=== PATIENT | female | born 1950 | race Caucasian/White ===

== ENCOUNTER 2020-03-03 14:33 | Observation (INO) | payer MEDICARE, OTHER, SELFPAY ==
[2020-03-03] VITALS (10 sets, daily range): BP systolic 146–168; BP diastolic 59–100; PULSE 66–92; RESP 14–19; TEMP 36.4–36.8; O2SAT 97–100; BMI 34.9
--- NOTE | 2020-03-03 16:00 | ECG_ITS ---
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 Measurements Intervals [place] Rate: 99 P: 45 SD: 174 QRS: 6 QRSD: 81 T: 27 QT: 340 QTc: 436 Interpretive Statements SINUS RHYTHM No previous ECG available for comparison Electronically Signed On 03-03-2020 21:07:39 CDT by Eneida Ballard M.D. [id number]
--- NOTE | 2020-03-03 16:00 | XRR_ITS ---
PROCEDURE INFORMATION: Exam: XR Chest, 1 View Exam date and time: 03/03/2020 4:16 PM Age: 69 years old Clinical indication: Dyspnea; Prior surgery; Surgery type: Bypass TECHNIQUE: Imaging protocol: XR of the chest Views: 1 view. COMPARISON: No relevant prior studies available. FINDINGS: Lungs: There is a small calcified granuloma in the right upper lobe. Lungs are otherwise clear. No consolidation. Pleural space: Unremarkable. No pleural effusion. No pneumothorax. Heart/Mediastinum: Unremarkable. No cardiomegaly. Vasculature: Atherosclerotic changes are present in the aortic arch. Bones/joints: Sternotomy wires and mediastinal surgical clips are present, consistent with previous coronary arterial bypass grafting. XR/XR chest 1V portable [id number] IMPRESSION: No acute findings.
--- NOTE | 2020-03-03 16:01 | W.ED.GENADLT ---
Documented by User: Alejandra Murray MD 03/17/20 06:21 HPI - General Adult General: Chief complaint: General Medical Stated complaint: high bp Time Seen by Provider: 03/03/20 15:51 History of Present Illness: HPI narrative: This patient is a 69-year-old female who presents today with high blood pressure, headache, shortness of breath. She said she has been having a lot of difficulty controlling her blood pressure over the last month or 2. Her doctor has made multiple changes to her medications. Today her blood pressure was over 200 and she went to the doctor's office where they gave her clonidine and sent her to the ER. She said she has been having some pressure in her head with the high blood pressure but today's headache is different and worse. She also has had increasing shortness of breath. She says the symptoms feel just like the symptoms that brought her to the hospital for evaluation and eventually to cardiac bypass surgery. That was about 7 years ago. Since that time she has not had a stress test. She thinks she had an ultrasound of her heart a few years ago. She sees a oleo hasher and renderer to [facility] but has not had any big work-up in quite some time. She did recently have a carotid ultrasound on the left which showed a 60% blockage. She has had surgery on her right carotid artery previously. Onset (ago): month(s) (Progressive symptoms over the past month) Location: head Severity: similar to prior episodes (Leading to her cardiac bypass surgery) Associated symptoms: Reports dyspnea and headache(s); Deny chest pain, malaise, nausea, rash or vomiting Review of Systems General: Reports: 10 or more systems reviewed and unremarkable except in HPI and below Const: Denies: fever(s), chills, fatigue or malaise Eyes: Denies: change in vision ENMT: Denies: odynophagia Card: Denies: chest pain or swelling of feet/ankles Resp: Reports: dyspnea; Denies: productive cough or non-productive cough GI: Denies: abdominal pain, nausea or vomiting : Denies: flank pain or difficulty voiding Musc: Denies: neck pain or back pain Skin/Breast: Denies: rash Neuro: Reports: headache(s); Denies: numbness in extremities or weakness in extremities Grupo/Lymph: Denies: easy bruising or easy bleeding PFSH ED PFSH: Medical History (Updated 03/03/20 @ 23:04 by Lakshmi Spivey) Carotid artery disease Cataracts, bilateral Coronary artery disease DJD (degenerative joint disease) Essential hypertension History of colon polyps History of ovarian cancer Hyperlipidemia Hypertension Obstructive sleep apnea Ovarian cancer in remission Diagnosed and treated 2009 Stress incontinence Surgical History (Updated 03/03/20 @ 22:34 by Cesar Clark MD) History of breast lump removal History of carotid endarterectomy Right side History of coronary artery bypass graft 4 vessels, [place], 2013 [place] History of knee replacement Left History of total abdominal hysterectomy Family History (Updated 03/03/20 @ 22:34 by Cesar Clark MD) Other CAD (coronary artery disease) Social History (Updated 03/03/20 @ 22:35 by Cesar Clark MD) Smoking and tobacco status: former smoker Alcohol intake: never Physical Exam Const: COMMON NORMALS: no acute distress, patient oriented x3, no limitations and alert GENERAL APPEARANCE: cooperative and comfortable HENMT: HEAD & SCALP: normal to inspection FACE & SINUS: normal facial exam Eye: GENERAL EYE: appearance normal, both eyes and all related structures Neck/C-Spine: COMMON NORMALS: supple, no meningeal signs, no JVD and No carotid bruits (Healed carotid endarterectomy scar on the right) Chest: COMMONS NORMALS: normal inspection of the chest (Healed midline sternotomy scar) Resp: COMMON NORMALS: normal respiratory effort, No use of accessory muscles and clear to auscultation bilaterally AUSCULTATION: clear to auscultation bilaterally Cardio: COMMON NORMALS: no JVD, regular rate, regular rhythm and No murmurs present (Cardio) RATE: regular rate RHYTHM: regular rhythm GI: COMMON NORMALS: Normal to inspection, nondistended, normoactive bowel sounds present, Soft to palpation and non-tender INSPECTION: Yes normal to inspection AUSCULTATION: Yes normoactive bowel sounds PALPATION: Yes Soft to palpation Back/Pelvis: COMMON NORMALS: thoracic and lumbar spine normal to inspection Extremity: COMMON NORMALS: normal to inspection Neuro: COMMON NORMALS: patient oriented x3, moves all extremities, no focal motor deficits and no sensory deficits noted SENSORIUM/ORIENTATION: Yes alert MENINGEAL SIGNS: Yes no meningeal signs Psych: COMMON NORMALS: mental status grossly normal, cooperative and normal affect Skin: COMMON NORMALS: no rashes or lesions noted and turgor normal GENERAL SKIN EXAM: no rashes or lesions noted and turgor normal Course Vital Signs: Vital signs: Vital Signs Temperature 98.0 F 03/04/20 08:00 Pulse Rate 78 03/04/20 17:30 Respiratory Rate 20 H 03/04/20 17:30 Blood Pressure 133/58 03/04/20 17:30 Pulse Oximetry 93 03/04/20 17:30 [facility] - General Adult Lab Data: Labs: Lab Results 03/03/20 03/03/20 03/03/20 Range/Units 16:26 16:26 16:26 WBC 8.7 (4.0-10.0) 10^3/ uL RBC 4.94 (4.1-5.3) 10^6/u L Hgb 14.9 (11.5-15.3) g/dL Hct 46.7 (37.0-47.0) % MCV 94.5 (81-99) fL MCH 30.2 (28.0-34.0) pg MCHC 31.9 (30.0-36.0) g/dL RDW 12.2 (12.1-15.1) % Plt Count 225 (130-400) 10^3/c mm MPV 11.1 H (7.4-10.4) fL Neut % (Auto) 60.4 % Lymph % (Auto) 29.8 % [place] % (Auto) 6.7 % Eos % (Auto) 1.5 % Baso % (Auto) 0.7 % Neut # (Auto) 5.25 (1.8-7.7) 10^3/u L Lymph # (Auto) 2.6 (0.8-4.8) 10^3/u L [place] # (Auto) 0.6 (0.2-0.9) 10^3/u L Eos # (Auto) 0.1 (0.0-0.8) 10^3/u L Baso # (Auto) 0.1 (0.0-0.1) 10^3/u L Nucleated RBC % (a uto) 0 % Nucleated RBCs # 0.0 /100WBC Sodium 138 (136-145) mmol/L Potassium 4.4 (3.5-5.1) mmol/L Chloride 104 (98-107) mmol/L Carbon Dioxide 23 (22-29) mmol/L Anion Gap 15.4 (5-19) BUN 15 (8-23) mg/dL Creatinine 0.8 (0.5-0.9) mg/dL GFR Calculation 71.1 L (90-130) mL/min Glucose 102 (65-115) mg/dL Calculated Osmolal ity 282 L (285-295) mOsm/k g Calcium 10.0 (8.5-10.5) mg/dL Total Bilirubin 0.4 (0.15-1.2) mg/dL AST 37 H (0-32) U/L ALT 58 H (0-33) U/L Alkaline Phosphata se 130 H (35-105) IU/L Troponin T Baselin e 10 (0-10) ng/L Troponin T 120 Min tangirnaq (0-10) ng/L Delta Troponin T (0-10) ABS# NT-Pro-B Natriuret Pep 47 (0-125) pg/mL Total Protein 7.2 (6.6-8.7) g/dL Albumin 5.1 (3.5-5.2) g/dL Globulin 2.1 (1.3-4.6) g/dL Urine Color (Yellow) Urine Appearance (CLEAR) Urine pH (5-7) Ur Specific Gravit y (1.005-1.030) Urine Protein (Negative) Urine Glucose (UA) (Normal) Urine Ketones (Negative) Urine Blood (Negative) Urine Nitrate (Negative) Urine Bilirubin (NEGATIVE) Urine Urobilinogen (Negative) mg/dL Ur Leukocyte Connie ase (Negative) Hepatitis A IgM Ab (Nonreactive) Hep Bs Antigen (Nonreactive) Hep B Core IgM Ab (Nonreactive) Hepatitis C Antibo dy (Nonreactive) 03/03/20 03/03/20 03/03/20 Range/Units 16:26 17:29 18:30 WBC (4.0-10.0) 10^3/ uL RBC (4.1-5.3) 10^6/u L Hgb (11.5-15.3) g/dL Hct (37.0-47.0) % MCV (81-99) fL MCH (28.0-34.0) pg MCHC (30.0-36.0) g/dL RDW (12.1-15.1) % Plt Count (130-400) 10^3/c mm MPV (7.4-10.4) fL Neut % (Auto) % Lymph % (Auto) % [place] % (Auto) % Eos % (Auto) % Baso % (Auto) % Neut # (Auto) (1.8-7.7) 10^3/u L Lymph # (Auto) (0.8-4.8) 10^3/u L [place] # (Auto) (0.2-0.9) 10^3/u L Eos # (Auto) (0.0-0.8) 10^3/u L Baso # (Auto) (0.0-0.1) 10^3/u L Nucleated RBC % (a uto) % Nucleated RBCs # /100WBC Sodium (136-145) mmol/L Potassium (3.5-5.1) mmol/L Chloride (98-107) mmol/L Carbon Dioxide (22-29) mmol/L Anion Gap (5-19) BUN (8-23) mg/dL Creatinine (0.5-0.9) mg/dL GFR Calculation (90-130) mL/min Glucose (65-115) mg/dL Calculated Osmolal ity (285-295) mOsm/k g Calcium (8.5-10.5) mg/dL Total Bilirubin (0.15-1.2) mg/dL AST (0-32) U/L ALT (0-33) U/L Alkaline Phosphata se (35-105) IU/L Troponin T Baselin e (0-10) ng/L Troponin T 120 Min tangirnaq 12.55 H (0-10) ng/L Delta Troponin T 2.55 (0-10) ABS# NT-Pro-B Natriuret Pep (0-125) pg/mL Total Protein (6.6-8.7) g/dL Albumin (3.5-5.2) g/dL Globulin (1.3-4.6) g/dL Urine Color Yellow (Yellow) Urine Appearance Clear (CLEAR) Urine pH 5 (5-7) Ur Specific Gravit y 1.010 (1.005-1.030) Urine Protein Neg (Negative) Urine Glucose (UA) Norm (Normal) Urine Ketones Negative (Negative) Urine Blood Neg (Negative) Urine Nitrate Negative (Negative) Urine Bilirubin Neg (NEGATIVE) Urine Urobilinogen Neg (Negative) mg/dL Ur Leukocyte Connie ase Negative (Negative) Hepatitis A IgM Ab Non-reactive (Nonreactive) Hep Bs Antigen Non-reactive (Nonreactive) Hep B Core IgM Ab Non-reactive (Nonreactive) Hepatitis C Antibo dy Non-reactive (Nonreactive) EKG Data^: EKG 1: Computer generated interpretation: Chest X-Ray 03/03/20 16:00 IMPRESSION: No acute findings. Head CT 03/03/20 17:48 IMPRESSION: No acute intracranial finding Radiation Dose CTDIVOL = (mGy): DLP = 765.13 (mGy-cm) Gallbladder Ultrasound 03/04/20 07:00 IMPRESSION: 1. Mild hepatomegaly with moderate hepatic steatosis. 2. No cholelithiasis identified. Abdomen/Pelvis CT 03/04/20 09:54 IMPRESSION: 1. No adrenal mass. 2. Mild hepatomegaly with severe hepatic steatosis. 3. Moderate atherosclerosis aorta extends into the common iliac arteries. 4. Possible small gallstone in the gallbladder. Not visualized on the recent ultrasound. 5. Chronic mild LEFT hydroureteronephrosis. There is very mild dilatation of the renal pelvis and ureter throughout its course. No resultant renal atrophy. No change since 2008. Suspect a mild LEFT distal ureteral stricture. Discharge Plan Discharge Patient Disposition: Placed in Observation Admit Provider: Cesar Clark Clinical Impression: Dyspnea on exertion, Anginal equivalent Condition: Stable Discharge Diet: Cardiac Discharge Activity: Resume usual activity Patient Instructions: Amlodipine (By mouth), Chronic Hypertension (DC) Additional Instructions: Please maintain blood pressure diary by checking her blood pressures at least 3 times a day. Please follow-up with her blood pressure diary with your primary care provider and your oleo hasher and renderer in [place]. Given your past medical history of longstanding hypertension since the age of 18 years and with this episodes of flushing you should be checked out for secondary causes of hypertension. Please follow-up with your primary care provider regarding the blood work which has been sent while you are in the hospital. 5 HIAA and blood work for pheochromocytoma should be done. Discharge Date/Time: 03/03/20 22:40 Sign Out Sign Out Data: Patient Sign Out occurred on 08/06/20 at 18:07. Patient's care was discussed, and care was transferred from to Lakshmi Spivey. Coding Level of Care Code ED Clinical Provider Trainer for Chg Fwd Exam Comprehensive Documented by User: Lakshmi Spivey 03/03/20 23:04 HPI - General Adult General: Chief complaint: General Medical Stated complaint: high bp Time Seen by Provider: 03/03/20 15:51 PFSH ED PFSH: Medical History (Updated 03/03/20 @ 23:04 by Lakshmi Spivey) Carotid artery disease Cataracts, bilateral Coronary artery disease DJD (degenerative joint disease) Essential hypertension History of colon polyps History of ovarian cancer Hyperlipidemia Hypertension Obstructive sleep apnea Ovarian cancer in remission Diagnosed and treated 2008 Stress incontinence Surgical History (Updated 03/03/20 @ 22:34 by Cesar Clark MD) History of breast lump removal History of carotid endarterectomy Right side History of coronary artery bypass graft 4 vessels, [place], 2013 [place] History of knee replacement Left History of total abdominal hysterectomy Family History (Updated 03/03/20 @ 22:34 by Cesar Clark MD) Other CAD (coronary artery disease) Social History (Updated 03/03/20 @ 22:35 by Cesar Clark MD) Smoking and tobacco status: former smoker Alcohol intake: never Course Vital Signs: Vital signs: Vital Signs Temperature 98.0 F 03/04/20 08:00 Pulse Rate 78 03/04/20 17:30 Respiratory Rate 20 H 03/04/20 17:30 Blood Pressure 133/58 03/04/20 17:30 Pulse Oximetry 93 03/04/20 17:30 MDM - General Adult MDM Narrative: Medical decision making narrative: The case was inherited by me at change of shift from Dr. Murray. Please see her note for her history, physical exam and medical decision-making notes. Patient still complains of headache and is very concerned about her shortness of breath and fatigue. She states all these symptoms were the same symptoms she had before she ended up having to have bypass surgery. She is fearful to go home without more answers. I have tried to reassure her in regards to her lab work, EKGs and CT scan. Nonetheless she seems very frustrated. I have asked Dr. Clark to come down and evaluate the patient and he has been gracious enough to consult to see if further care is needed. Lab Data: Labs: Lab Results 03/03/20 03/03/20 03/03/20 Range/Units 16:26 16:26 16:26 WBC 8.7 (4.0-10.0) 10^3/ uL RBC 4.94 (4.1-5.3) 10^6/u L Hgb 14.9 (11.5-15.3) g/dL Hct 46.7 (37.0-47.0) % MCV 94.5 (81-99) fL MCH 30.2 (28.0-34.0) pg MCHC 31.9 (30.0-36.0) g/dL RDW 12.2 (12.1-15.1) % Plt Count 225 (130-400) 10^3/c mm MPV 11.1 H (7.4-10.4) fL Neut % (Auto) 60.4 % Lymph % (Auto) 29.8 % [place] % (Auto) 6.7 % Eos % (Auto) 1.5 % Baso % (Auto) 0.7 % Neut # (Auto) 5.25 (1.8-7.7) 10^3/u L Lymph # (Auto) 2.6 (0.8-4.8) 10^3/u L [place] # (Auto) 0.6 (0.2-0.9) 10^3/u L Eos # (Auto) 0.1 (0.0-0.8) 10^3/u L Baso # (Auto) 0.1 (0.0-0.1) 10^3/u L Nucleated RBC % (a uto) 0 % Nucleated RBCs # 0.0 /100WBC Sodium 138 (136-145) mmol/L Potassium 4.4 (3.5-5.1) mmol/L Chloride 104 (98-107) mmol/L Carbon Dioxide 23 (22-29) mmol/L Anion Gap 15.4 (5-19) BUN 15 (8-23) mg/dL Creatinine 0.8 (0.5-0.9) mg/dL GFR Calculation 71.1 L (90-130) mL/min Glucose 102 (65-115) mg/dL Calculated Osmolal ity 282 L (285-295) mOsm/k g Calcium 10.0 (8.5-10.5) mg/dL Total Bilirubin 0.4 (0.15-1.2) mg/dL AST 37 H (0-32) U/L ALT 58 H (0-33) U/L Alkaline Phosphata se 130 H (35-105) IU/L Troponin T Baselin e 10 (0-10) ng/L Troponin T 120 Min tangirnaq (0-10) ng/L Delta Troponin T (0-10) ABS# NT-Pro-B Natriuret Pep 47 (0-125) pg/mL Total Protein 7.2 (6.6-8.7) g/dL Albumin 5.1 (3.5-5.2) g/dL Globulin 2.1 (1.3-4.6) g/dL Urine Color (Yellow) Urine Appearance (CLEAR) Urine pH (5-7) Ur Specific Gravit y (1.005-1.030) Urine Protein (Negative) Urine Glucose (UA) (Normal) Urine Ketones (Negative) Urine Blood (Negative) Urine Nitrate (Negative) Urine Bilirubin (NEGATIVE) Urine Urobilinogen (Negative) mg/dL Ur Leukocyte Connie ase (Negative) Hepatitis A IgM Ab (Nonreactive) Hep Bs Antigen (Nonreactive) Hep B Core IgM Ab (Nonreactive) Hepatitis C Antibo dy (Nonreactive) 03/03/20 03/03/20 03/03/20 Range/Units 16:26 17:29 18:30 WBC (4.0-10.0) 10^3/ uL RBC (4.1-5.3) 10^6/u L Hgb (11.5-15.3) g/dL Hct (37.0-47.0) % MCV (81-99) fL MCH (28.0-34.0) pg MCHC (30.0-36.0) g/dL RDW (12.1-15.1) % Plt Count (130-400) 10^3/c mm MPV (7.4-10.4) fL Neut % (Auto) % Lymph % (Auto) % [place] % (Auto) % Eos % (Auto) % Baso % (Auto) % Neut # (Auto) (1.8-7.7) 10^3/u L Lymph # (Auto) (0.8-4.8) 10^3/u L [place] # (Auto) (0.2-0.9) 10^3/u L Eos # (Auto) (0.0-0.8) 10^3/u L Baso # (Auto) (0.0-0.1) 10^3/u L Nucleated RBC % (a uto) % Nucleated RBCs # /100WBC Sodium (136-145) mmol/L Potassium (3.5-5.1) mmol/L Chloride (98-107) mmol/L Carbon Dioxide (22-29) mmol/L Anion Gap (5-19) BUN (8-23) mg/dL Creatinine (0.5-0.9) mg/dL GFR Calculation (90-130) mL/min Glucose (65-115) mg/dL Calculated Osmolal ity (285-295) mOsm/k g Calcium (8.5-10.5) mg/dL Total Bilirubin (0.15-1.2) mg/dL AST (0-32) U/L ALT (0-33) U/L Alkaline Phosphata se (35-105) IU/L Troponin T Baselin e (0-10) ng/L Troponin T 120 Min tangirnaq 12.55 H (0-10) ng/L Delta Troponin T 2.55 (0-10) ABS# NT-Pro-B Natriuret Pep (0-125) pg/mL Total Protein (6.6-8.7) g/dL Albumin (3.5-5.2) g/dL Globulin (1.3-4.6) g/dL Urine Color Yellow (Yellow) Urine Appearance Clear (CLEAR) Urine pH 5 (5-7) Ur Specific Gravit y 1.010 (1.005-1.030) Urine Protein Neg (Negative) Urine Glucose (UA) Norm (Normal) Urine Ketones Negative (Negative) Urine Blood Neg (Negative) Urine Nitrate Negative (Negative) Urine Bilirubin Neg (NEGATIVE) Urine Urobilinogen Neg (Negative) mg/dL Ur Leukocyte Connie ase Negative (Negative) Hepatitis A IgM Ab Non-reactive (Nonreactive) Hep Bs Antigen Non-reactive (Nonreactive) Hep B Core IgM Ab Non-reactive (Nonreactive) Hepatitis C Antibo dy Non-reactive (Nonreactive) Imaging Data^: CXR: Attestation: I personally reviewed and interpreted this imaging study as follows: My impression: No acute cardiopulmonary findings. CT Head: Radiologist's impression: [address] [address] [address] Scan Report Signed Patient: Viry Mendez Unit #: [id number] : 1950 Age/Sex: 69 / F ADM Date: 03/03/20 Loc: ER Room/Bed: Attending Dr: Ordering Provider/Ordering MD: Alejandra Murray MD Date of Service: 03/03/20 Procedure(s): CT head wo con* [id number] Accession Number(s): [id number] Report Number: [id number] PROCEDURE INFORMATION: Exam: CT Head Without Contrast Exam date and time: 03/03/2020 6:03 PM Age: 69 years old Clinical indication: Pain; Headache TECHNIQUE: Imaging protocol: Computed tomography of the head without contrast. Radiation optimization: All CT scans at this facility use at least one of these dose optimization techniques: automated exposure control; mA and/or kV adjustment per patient size (includes targeted exams where dose is matched to clinical indication); or iterative reconstruction. COMPARISON: No relevant prior studies available. RADIATION DOSE METRICS: Total DLP (mGy-cm): 765.13 FINDINGS: Brain: There is mild cortical atrophy. Low-density changes in the white matter are consistent with nonspecific small vessel chronic ischemic change. There is no intracranial mass, hemorrhage or edema. Ventricles: Normal. No ventriculomegaly. Bones/joints: Unremarkable. No acute fracture. Sinuses: Visualized sinuses are unremarkable. No fluid levels. Mastoid air cells: Visualized mastoid air cells are well aerated. Soft tissues: Unremarkable. CT/CT head wo con* [id number] IMPRESSION: No acute intracranial finding Radiation Dose CTDIVOL = (mGy): DLP = 765.13 (mGy-cm) Dictated By: Koko Todd Signed By: Koko Todd Signed Date/Time: 03/03/201855 DD/ 54 EKG Data^: EKG 1: Attestation: I personally reviewed and interpreted this EKG as follows: EKG interpretation date: 03/03/20 EKG interpretation time: 14:59 Interpretation: Normal sinus rhythm at 99 beats a minute, normal axis, no blocks, normal intervals, no acute ST-T wave changes. Computer generated interpretation: Chest X-Ray 03/03/20 16:00 IMPRESSION: No acute findings. Head CT 03/03/20 17:48 IMPRESSION: No acute intracranial finding Radiation Dose CTDIVOL = (mGy): DLP = 765.13 (mGy-cm) Gallbladder Ultrasound 03/04/20 07:00 IMPRESSION: 1. Mild hepatomegaly with moderate hepatic steatosis. 2. No cholelithiasis identified. Abdomen/Pelvis CT 03/04/20 09:54 IMPRESSION: 1. No adrenal mass. 2. Mild hepatomegaly with severe hepatic steatosis. 3. Moderate atherosclerosis aorta extends into the common iliac arteries. 4. Possible small gallstone in the gallbladder. Not visualized on the recent ultrasound. 5. Chronic mild LEFT hydroureteronephrosis. There is very mild dilatation of the renal pelvis and ureter throughout its course. No resultant renal atrophy. No change since 2008. Suspect a mild LEFT distal ureteral stricture. Discharge Plan Discharge Patient Disposition: Placed in Observation Admit Provider: Cesar Clark Clinical Impression: Dyspnea on exertion, Anginal equivalent Condition: Stable Discharge Diet: Cardiac Discharge Activity: Resume usual activity Patient Instructions: Amlodipine (By mouth), Chronic Hypertension (DC) Additional Instructions: Please maintain blood pressure diary by checking her blood pressures at least 3 times a day. Please follow-up with her blood pressure diary with your primary care provider and your oleo hasher and renderer in [place]. Given your past medical history of longstanding hypertension since the age of 18 years and with this episodes of flushing you should be checked out for secondary causes of hypertension. Please follow-up with your primary care provider regarding the blood work which has been sent while you are in the hospital. 5 HIAA and blood work for pheochromocytoma should be done. Discharge Date/Time: 03/03/20 22:40 Sign Out Sign Out Data: Patient Sign Out occurred on 03/03/20 at 18:07. Patient's care was discussed, and care was transferred from to Lakshmi Spivey. Coding Level of Care Code ED Clinical Provider Trainer for Chg Fwd Exam Comprehensive
[2020-03-03 16:44] LABS: Basophils # 0.1 10^3/uL (0.0-0.1); Basophils % 0.7 %; Eosinophils # 0.1 10^3/uL (0.0-0.8); Eosinophils % 1.5 %; Hematocrit 46.7 % (37.0-47.0); Hemoglobin 14.9 g/dL (11.5-15.3); Lymphocytes # 2.6 10^3/uL (0.8-4.8); Lymphocytes % 29.8 %; Mean Corpuscular HGB Conc 31.9 g/dL (30.0-36.0); Mean Corpuscular Hemoglobin 30.2 pg (28.0-34.0); Mean Corpuscular Volume 94.5 fL (81-99); Mean Platelet Volume 11.1 fL (7.4-10.4); Monocytes # 0.6 10^3/uL (0.2-0.9); Monocytes % 6.7 %; Neutrophils # 5.25 10^3/uL (1.8-7.7); Neutrophils % 60.4 %; Nucleated Red Blood Cells % 0 %; Platelet Count 225 10^3/cmm (130-400); Red Blood Count 4.94 10^6/uL (4.1-5.3); Red Cell Distribution Width 12.2 % (12.1-15.1); White Blood Count 8.7 10^3/uL (4.0-10.0)
[2020-03-03 17:09] LABS: Troponin(5th) Baseline 10 ng/L (0-10)
[2020-03-03 17:18] LABS: Anion Gap 15.4 (5-19); Blood Urea Nitrogen 15 mg/dL (8-23); Carbon Dioxide 23 mmol/L (22-29); Chloride 104 mmol/L (98-107); Glomerular Filtration Rate 71.1 mL/min (90-130); Glucose 102 mg/dL (65-115); Osmolality Calculated 282 mOsm/kg (285-295); Potassium 4.4 mmol/L (3.5-5.1); Sodium 138 mmol/L (136-145)
[2020-03-03 17:19] LABS: Alanine Aminotransferase 58 U/L (0-33); Albumin Level 5.1 g/dL (3.5-5.2); Alkaline Phosphatase 130 IU/L (35-105); Aspartate Amino Transferase 37 U/L (0-32); Globulin 2.1 g/dL (1.3-4.6); NT Pro B Type Natriuretic Pept 47 pg/mL (0-125); Total Bilirubin 0.4 mg/dL (0.15-1.2); Total Protein 7.2 g/dL (6.6-8.7)
--- NOTE | 2020-03-03 17:23 | PC.NURSE ---
Pt up to BR to try to void
--- NOTE | 2020-03-03 17:48 | CTR_ITS ---
PROCEDURE INFORMATION: Exam: CT Head Without Contrast Exam date and time: 03/03/2020 6:03 PM Age: 69 years old Clinical indication: Pain; Headache TECHNIQUE: Imaging protocol: Computed tomography of the head without contrast. Radiation optimization: All CT scans at this facility use at least one of these dose optimization techniques: automated exposure control; mA and/or kV adjustment per patient size (includes targeted exams where dose is matched to clinical indication); or iterative reconstruction. COMPARISON: No relevant prior studies available. RADIATION DOSE METRICS: Total DLP (mGy-cm): 765.13 FINDINGS: Brain: There is mild cortical atrophy. Low-density changes in the white matter are consistent with nonspecific small vessel chronic ischemic change. There is no intracranial mass, hemorrhage or edema. Ventricles: Normal. No ventriculomegaly. Bones/joints: Unremarkable. No acute fracture. Sinuses: Visualized sinuses are unremarkable. No fluid levels. Mastoid air cells: Visualized mastoid air cells are well aerated. Soft tissues: Unremarkable. CT/CT head wo con* [id number] IMPRESSION: No acute intracranial finding Radiation Dose CTDIVOL = (mGy): DLP = 765.13 (mGy-cm)
[2020-03-03 17:58] LABS: Add Urine Microscopic? NO
--- NOTE | 2020-03-03 18:00 | ECG_ITS ---
[facility] Test Date: 2020-03-03 Pat Name: Viry Mendez Department: Room: Gender: Female Client Development Consultant: : 1950 Requested By: Alejandra Schmidt Order Number: [id number] Pérez MD: Eneida Ballard M.D. Measurements Intervals [place] Rate: 69 P: 38 KS: 211 QRS: 3 QRSD: 84 T: 10 QT: 380 QTc: 408 Interpretive Statements SINUS RHYTHM WITH FIRST DEGREE AV BLOCK INTERPRETATION BASED ON A DEFAULT AGE OF 40 YEARS Compared to ECG 03/03/2020 14:59:36 First degree AV block now present Electronically Signed On 03-03-2020 21:17:20 CDT by Eneida Ballard M.D. [id number] f
[2020-03-03 18:08] LABS: Bilirubin Urine Neg (NEGATIVE); Blood Urine Neg (Negative); Glucose Urine UA Norm (Normal); Ketones Urine Negative (Negative); Leukocyte Esterase Urine Negative (Negative); Nitrate Urine Negative (Negative); Protein Urine Neg (Negative); Urine Appearance Clear (CLEAR); Urine Color Yellow (Yellow); Urobilinogen Urine Neg (Negative); pH Urine 5 (5-7)
[2020-03-03 20:23] LABS: Troponin 5 2HR 12.55 ng/L (0-10); Troponin 5 2HR Delta 2.55 ABS# (0-10)
[2020-03-03] MEDS: labetalol 5 mg/mL SDV 20mL 10 MG IVP (20:41)
[2020-03-03] MEDS: acetaminophen 500 mg Tablet 1000 MG PO (20:49)
--- NOTE | 2020-03-03 22:00 | ECG_ITS ---
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 Measurements Intervals [place] Rate: 62 P: 36 VT: 218 QRS: -1 QRSD: 96 T: 11 QT: 422 QTc: 432 Interpretive Statements SINUS RHYTHM WITH FIRST DEGREE AV BLOCK Compared to ECG 03/03/2020 18:31:49 No significant changes Electronically Signed On 03-04-2020 18:03:12 CDT by Benjamin Flower M.D. [id number] f
--- NOTE | 2020-03-03 22:28 | PM.HP ---
Providers/Chief Complaint Chief Complaint: high bp History of Present Illness Viry Mendez is a 69 year old female who presents to the hospital with some complaints of dyspnea. She states for the last 1 months she intermittently has been having flushing, headache when her blood pressure goes up. For the last 2 weeks she has been having some dyspnea that can occur at rest or with exertion. However, this can reliably occur with exertion. It requires 2 to 3 minutes to recover by resting. She denies any chest discomfort. She reports this dyspnea on exertion occurred before when she was having angina secondary to her heart disease which required bypass. She believes this is getting worse and she is having more prolonged episodes. No nausea. No fever. No COVID exposure. No recent leg edema. No calf pain. Review of Systems General: Reports: 10 or more systems reviewed and unremarkable except in HPI and below Const: Denies: fever(s) or chills Eyes: Denies: change in vision ENMT: Denies: throat pain Card: Reports: dyspnea on exertion; Denies: chest pain Resp: Denies: dyspnea GI: Denies: abdominal pain : Denies: flank pain Musc: Denies: neck pain Neuro: Denies: headache(s) Psych: Denies: anxiety Endo: Denies: polyuria Grupo/Lymph: Denies: easy bruising All/Imm: Denies: urticaria Medications/Allergies Home Medications Medication Instructions Recorded Confirmed Last Taken Type oxybutynin chloride 10 mg 10 mg PO DAILY 01/18/20 03/03/20 03/03/20 History tablet,extended release 24 hr metoprolol tartrate 50 mg tablet See Rx Instructions .ROUTE 01/26/20 03/03/20 03/03/20 Rx .COMPLEX #180 tab amlodipine 5 mg tablet 5 mg PO DAILY #30 tab 03/01/20 03/03/20 03/03/20 Rx amoxicillin 875 mg-potassium 1 tab PO BID 10 Days #20 tab 03/01/20 03/03/20 03/03/20 Rx clavulanate 125 mg tablet telmisartan 40 mg tablet 40 mg PO BID #180 tab 03/01/20 03/03/20 03/03/20 Rx aspirin [Aspirin Low Dose] 81 mg PO DAILY 03/03/20 03/03/20 03/03/20 History isosorbide mononitrate 60 mg PO DAILY 03/03/20 03/03/20 03/03/20 History lovastatin 40 mg PO DAILY 03/03/20 03/03/20 03/03/20 History Allergies Allergy/AdvReac Type Severity Reaction Status Date / Time sulfamethoxazole Allergy Unknown Verified 03/03/20 16:11 [From Bactrim] trimethoprim [From Bactrim] Allergy Unknown Verified 03/03/20 16:11 PFSH Acute PFSH: Medical History (Updated 03/03/20 @ 22:40 by Cesar Clark MD) Carotid artery disease Cataracts, bilateral Coronary artery disease DJD (degenerative joint disease) Essential hypertension History of colon polyps History of ovarian cancer Hyperlipidemia Hypertension Obstructive sleep apnea Ovarian cancer in remission Diagnosed and treated 2008 Stress incontinence Surgical History (Updated 03/03/20 @ 22:34 by Cesar Clark MD) History of breast lump removal History of carotid endarterectomy Right side History of coronary artery bypass graft 4 vessels, [place], 2013 [place] History of knee replacement Left History of total abdominal hysterectomy Family History (Updated 03/03/20 @ 22:34 by Cesar Clark MD) Other CAD (coronary artery disease) Social History (Updated 03/03/20 @ 22:35 by Cesar Clark MD) Smoking and tobacco status: former smoker Alcohol intake: never Substance/Drug Use: never Vitals/I&O/Wt Last Vital Signs Temp 98.2 F 03/03/20 14:46 Pulse 66 03/03/20 22:07 Resp 18 03/03/20 22:07 BP 152/62 03/03/20 22:07 Pulse Ox 97 03/03/20 22:07 Weight last 48 hrs Weight 95.254 kg Physical Exam Narrative: EXAM NARRATIVE: General exam no apparent distress. No chest discomfort or shortness of breath currently. HEENT: Pupils equally round. Oropharynx clear. Neck is supple no lymphadenopathy or thyromegaly Cardiovascular regular rate and rhythm, no S3 or S4 Lungs clear no wheezing or crackles Abdomen is soft with positive bowel sounds. No obvious organomegaly was deferred Extremities no cyanosis clubbing or edema, cap refill brisk Skin no rash Neuro no focal deficits. Data : 03/03/20 16:26 03/03/20 16:26 Other data: Liver function tests and alk phos slightly elevated Initial troponin X, repeat at 120 minutes 12.5 BNP 47 TSH pending Urinalysis negative CT head no bleed Chest x-ray no infiltrate EKG demonstrates sinus rhythm, normal axis, first-degree AV block, no's concerning ischemic changes. A&P Assessment and plan (1) Dyspnea: From her description this is her anginal equivalent. Secondary to this I believe it is imperative to stratify her risk with echocardiogram, nuclear stress testing through observation stay. Await third troponin. If this becomes significantly positive could consider move to angiogram For now continue home medicines which appear appropriate. She is on aspirin, long-acting nitrates, beta-jeff, statin Telemetry Status: Acute (2) Transaminitis: Etiology unknown at this point. Will repeat tomorrow. Check hepatitis panel Check gallbladder ultrasound Status: Acute (3) Hypertension: Blood pressure has been elevated and variable at present. For now continue home blood pressure medication. May need adjustment in her regimen should blood pressure be significantly elevated here. Could consider to increase amlodipine. Hydralazine PRN Status: Acute Additional A&P Information Hyperlipidemia. Continue statin. Consider change to high potency statin on discharge. Check lipid profile in a.m. Check TSH. Obstructive sleep apnea. 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
[2020-03-03] MEDS: enoxaparin 40 mg/0.4 mL Syringe SUBCUT (22:49)
[2020-03-03 22:57] LABS: Troponin 5 6HR 9.32 ng/L (0-10)
[2020-03-03 23:01] LABS: Troponin 5 6HR Delta -0.68 ng/L (0-12)
[2020-03-03 23:07] LABS: Thyroid Stimulating Hormone 2.84 uIU/mL (0.27-4.20)
[2020-03-03 23:17] LABS: Hepatitis A Antibody IgM Non-Reactive (Nonreactive); Hepatitis B Core IgM Non-Reactive (Nonreactive); Hepatitis B Surface Antigen Non-Reactive (Nonreactive); Hepatitis C Virus Antibody Non-Reactive (Nonreactive)
--- NOTE | 2020-03-03 23:29 | PC.NURSE ---
PT ARRIVED TO ROOM [facility]. PT AMBULATED TO BED FROM [facility]. PT IS IN A SINUS RHYTHM. HR 88, BP 149/68, RR 16, SPO2 93%. PT WAS BROUGHT A SANDWICH AND EDUCATED ON BEING NPO AFTER MIDNIGHT. PT STATES THAT THE LAST TIME DRINKING CAFFEINE WAS THIS MORNING AROUND 0700 AND WAS A CUP OF COFFEE. PT WAS ORIENTATED TO ROOM. PT DENIES PAIN AT THIS TIME. WILL CONTINUE TO MONITOR.
[2020-03-04] VITALS (8 sets, daily range): BP systolic 133–163; BP diastolic 47–77; PULSE 68–99; RESP 16–24; TEMP 36.6–36.7; O2SAT 93–98
[2020-03-04 04:17] LABS: Basophils # 0.1 10^3/uL (0.0-0.1); Basophils % 0.9 %; Eosinophils # 0.1 10^3/uL (0.0-0.8); Eosinophils % 1.2 %; Hematocrit 40.5 % (37.0-47.0); Hemoglobin 12.9 g/dL (11.5-15.3); Lymphocytes # 2.9 10^3/uL (0.8-4.8); Lymphocytes % 31.3 %; Mean Corpuscular HGB Conc 31.9 g/dL (30.0-36.0); Mean Corpuscular Hemoglobin 29.8 pg (28.0-34.0); Mean Corpuscular Volume 93.5 fL (81-99); Mean Platelet Volume 11.3 fL (7.4-10.4); Monocytes # 0.7 10^3/uL (0.2-0.9); Monocytes % 7.8 %; Neutrophils # 5.38 10^3/uL (1.8-7.7); Neutrophils % 58.4 %; Nucleated Red Blood Cells % 0 %; Platelet Count 218 10^3/cmm (130-400); Red Blood Count 4.33 10^6/uL (4.1-5.3); Red Cell Distribution Width 12.1 % (12.1-15.1); White Blood Count 9.2 10^3/uL (4.0-10.0)
[2020-03-04 04:36] LABS: Chol HDL Ratio 4.33 mg/dL (0.0-4.40); Cholesterol 156 mg/dL (0-200); HDL Cholesterol 36 mg/dL (60-100); LDL Cholesterol Calculated 74 mg/dL (50-129); LDL HDL Ratio 2.06 RATIO (0.00-3.22); Triglycerides 228 mg/dL (0-150)
[2020-03-04 04:44] LABS: Alanine Aminotransferase 48 U/L (0-33); Albumin Level 4.2 g/dL (3.5-5.2); Alkaline Phosphatase 104 IU/L (35-105); Aspartate Amino Transferase 23 U/L (0-32); Blood Urea Nitrogen 16 mg/dL (8-23); Calcium 9.5 mg/dL (8.5-10.5); Carbon Dioxide 24 mmol/L (22-29); Chloride 106 mmol/L (98-107); Globulin 2.8 g/dL (1.3-4.6); Glucose 103 mg/dL (65-115); Osmolality Calculated 289 mOsm/kg (285-295); Sodium 141 mmol/L (136-145); Total Bilirubin 0.5 mg/dL (0.15-1.2)
--- NOTE | 2020-03-04 05:28 | PC.NURSE ---
PT APPEARED TO HAVE RESTED WITH EYES CLOSED. PT DENIES PAIN AT THIS TIME. WILL GIVE REPORT TO ON COMING NURSE.
--- NOTE | 2020-03-04 06:00 | ECG_ITS ---
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 Interpretive Statements NAME OF STUDY: LEXISCAN SESTAMIBI STRESS TEST INDICATION: Chest Pain PROCEDURE: At the baseline, the blood pressure was 154/79 mmHg with a heart rate of 78 bpm. The electrocardiogram showed sinus rhythm with first-degree AV block, normal axis. Possible chest lead reversal (V1 and V2). The Lexiscan was infused over a period of 20 seconds. A total of 0.4 milligrams of Lexiscan was infused. The stress phase was continued for a total of 5 minutes. Heart rate at the end of the stress phase was 93 bpm with a blood pressure of 120/45 mmHg. The EKG at the peak infusion revealed sinus rhythm with nonspecific T wave inversion in lead III. This study was terminated due to protocol completion. Sestamibi was injected 20 seconds after the Lexiscan infusion. Blood pressure at the end of the recovery phase was 135/50 mmHg with a heart rate of 88 beats per minute. CONCLUSION: 1. No significant EKG changes with the LexiScan infusion. 2. No LexiScan induced chest pain or cardiac arrhythmia. 3. Baseline hypertension with normal blood pressure and heart rate response. 4. Sestamibi/sestamibi perfusion scan pending; see separate report. Electronically Signed On 03-05-2020 13:04:54 CDT by Joann Macedo M.D. [email or web address].[email or web address]/store/[id number]
--- NOTE | 2020-03-04 07:00 | USCV_ITS ---
Viry Mendez Age: 69 Gender: F : 1950 Exam Date: 03/04/2020 06:50 Ordering Phys: Cesar Clark MD Technologist: Tory Jurado [place] [facility] [place]: ANGINA BP: 134 / 66 HR: 67 Rhythm: Sinus Technical Quality: Suboptimal MEASUREMENTS (Male / Female) Normal Values 2D ECHO LV Diastolic Diameter PLAX 3.0 cm 4.2 - 5.9 / 3.9 - 5.3 cm LV Systolic Diameter PLAX 1.7 cm LV Chamber Size 2.4 cm IVS Diastolic Thickness 0.9 cm 0.6 - 1.0 / 0.6 - 0.9 cm IVS Systolic Thickness 1.4 cm LVPW Diastolic Thickness 1.6 cm 0.6 - 1.0 / 0.6 - 0.9 cm LVPW Systolic Thickness 1.9 cm RV Chamber Size 2.9 cm LVOT Diameter 2.1 cm LV Ejection Fraction 2D Teich 77.1 % LV Ejection Fraction MOD 2C 65.7 % LV Ejection Fraction 2C AL 64.7 % LA Diameter 4.4 cm LA Width 2.8 cm LA Height 3.9 cm RA Width 2.5 cm RA Height 3.4 cm Aorta at Sinotubular Diameter 2.7 cm M-MODE LV Diastolic Diameter MM 3.3 cm 4.2 - 5.9 / 3.9 - 5.3 cm LV Systolic Diameter MM 1.8 cm LV Ejection Fraction MM Teich 79.4 % IVS Diastolic Thickness MM 0.8 cm 0.6 - 1.0 / 0.6 - 0.9 cm IVS Systolic Thickness MM 1.2 cm LVPW Diastolic Thickness MM 0.6 cm 0.6 - 1.0 / 0.6 - 0.9 cm LVPW Systolic Thickness MM 1.1 cm Aortic Annulus Diameter 2.7 cm LA Ao Ratio MM 1.6 MV E Point Septal Separation 0.3 cm DOPPLER AV Peak Velocity 97.0 cm/s LVOT Peak Velocity 96.0 cm/s AV Area Cont Eq vti 4.5 cm squared AV Area Cont Eq pk 3.4 cm squared MV Area PHT 3.7 cm squared Mitral E to A Ratio 0.8 MV E' Velocity 66.0 cm/s Mitral E to MV E' Ratio 7.2 Mitral E to LV E' Lateral Ratio 6.7 Mitral E to LV E' Septal Ratio 8.0 TR Peak Velocity 129.0 cm/s TR Peak Gradient 6.6 mmHg TV Peak E Velocity 77.0 cm/s Right Atrial Pressure 3.0 mmHg Pulmonary Artery Systolic Pressu 9.7 mmHg PV Peak Velocity 75.0 cm/s RV Acceleration Time 0.2 s RV Ejection Time 0.3 s RV AcT/ET 0.5 FINDINGS Left Ventricle Normal left ventricular cavity size. Normal left ventricular systolic function. Left ventricular ejection fraction is estimated at 60%. No regional wall motion abnormalities. Normal diastolic function. Right Ventricle Normal right ventricular size and systolic function. Tricuspid valve regurgitant jet is inadequate for estimation of right ventricular systolic function. Right Atrium Right atrium not well visualized. Left Atrium Left atrium not well visualized. Mitral Valve Mildly thickened mitral valve. No mitral valve stenosis. No significant mitral valve regurgitation. Aortic Valve Aortic valve not well visualized. No aortic valve stenosis. Tricuspid Valve Tricuspid valve not well visualized. Pulmonic Valve Pulmonic valve not well visualized. Pericardium No pericardial effusion. Aorta Normal size aortic root and proximal ascending aorta. CONCLUSIONS 1. Normal left ventricular cavity size and systolic function. Left ventricular ejection fraction is estimated at 60%. No regional wall motion abnormalities. Normal diastolic function. 2. Normal right ventricular size and systolic function. 3. No significant valvular abnormality based on this study. 4. No prior similar studies to compare. Joann Macedo MD (Electronically Signed) Final Date: 04 March 2020 21:12 S
--- NOTE | 2020-03-04 07:00 | US_ITS ---
WS: [id number] RIGHT UPPER QUADRANT ULTRASOUND HISTORY: elevated LFT's COMPARISON: None available. Liver: 18.0 cm in length. Liver is slightly enlarged with diffuse hepatic steatosis. No biliary dilat ation or mass identified. Gallbladder: Normally distended gallbladder with no stones or wall thickening. CBD: 0.4 cm Pancreas: Normal size and echogenicity. Right kidney: 10.9 cm in length. Normal echogenicity with no mass or hydronephrosis. Aorta and IVC: Unremarkable. No ascites. US/US gall bladder [id number] IMPRESSION: 1. Mild hepatomegaly with moderate hepatic steatosis. 2. No cholelithiasis identified.
[2020-03-04] MEDS: regadenoson 0.4 Mg/5 ml Syringe IVP (07:50)
[2020-03-04] MEDS: amlodipine 5 mg Tablet PO (09:22)
[2020-03-04] MEDS: isosorbide mononitrate ER 30 mg Tablet 60 MG PO (09:22)
[2020-03-04] MEDS: atorvastatin 40 mg Tablet 20 MG PO (09:22)
[2020-03-04] MEDS: losartan 50 mg Tablet 100 MG PO (09:24)
[2020-03-04] MEDS: oxybutynin 5 mg Tablet 10 MG PO (09:24)
[2020-03-04] MEDS: aspirin 81 mg EC Tablet PO (09:25)
[2020-03-04] MEDS: metoprolol tartrate 50 mg Tablet PO (09:25)
[2020-03-04] MEDS: acetaminophen 325 mg Tablet 650 MG PO (09:29)
--- NOTE | 2020-03-04 09:38 | PC.NURSE ---
Family brought in belongings at bedside. (pink bag)
--- NOTE | 2020-03-04 09:54 | CT_ITS ---
WS: [id number] CT ABDOMEN AND PELVIS WITH AND WITHOUT CONTRAST HISTORY: r/o adrenal mass, elevated LFT TECHNIQUE: Unenhanced 5 mm axial imaging first performed through the abdomen. Post contrast imaging t hrough the abdomen and pelvis. Adrenal protocol followed. Oral contrast has not been provided. Sagitt al and coronal reformats are submitted. All CT scans at [facility] use at least one of th jonathan dose optimization techniques: automated exposure control; mA and/or kV adjustment per patient siz e (includes targeted exams where dose is matched to clinical indication); or iterative reconstruction . CONTRAST: Omnipaque 300; 95 mL IV. DLP: 3281.68 mGy.cm COMPARISON: 03/23/2009 Lung bases are clear. Normal size heart. No hiatal hernia. Severe diffuse hepatic steatosis and mild hepatomegaly. Focal area of decreased attenuation in the LE FT lobe of the liver is probably a small cyst or hepatic steatosis. No solid mass. Normal portal vein . Possible single stone near the neck of the gallbladder. Pancreas and spleen are negative. Normal ad renal glands. No mass. Kidneys are enhancing normally with a 1.8 cm cyst in the lower pole the LEFT k idney which is stable since 2008. No solid mass. There is mild LEFT hydroureteronephrosis. The LEFT u reter is dilated throughout its course to the bladder. Similar to the prior study. Normal size RIGHT ovary. Atherosclerosis of aorta. Very mild ectasia and dilatation of the infrarenal aorta to 2.9 cm. Moderat e atherosclerosis continues into the common iliac arteries. No GI tract obstruction. The appendix is normal. No significant diverticular disease. Well-distended urinary bladder. No intraluminal filling defects. No osteoblastic or osteolytic bone disease. CT/CT abdomen pelvis wo/w [id number] IMPRESSION: 1. No adrenal mass. 2. Mild hepatomegaly with severe hepatic steatosis. 3. Moderate atherosclerosis aorta extends into the common iliac arteries. 4. Possible small gallstone in the gallbladder. Not visualized on the recent u ltrasound. 5. Chronic mild LEFT hydroureteronephrosis. There is very mild dilatation of t he renal pelvis and ureter throughout its course. No resultant renal atrophy. N o change since 2008. Suspect a mild LEFT distal ureteral stricture.
--- NOTE | 2020-03-04 09:57 | USCV_ITS ---
Andrea Viyr Age: 69 Gender: F : 1950 Exam Date: 03/04/2020 15:43 Ordering Phys: Pramod Horner MD Technologist: Tuan Shipley [place]am [place] [facility] [place] Indication: HTN ? RENAL STENOSIS Aortic Velocity @ SMA (cm/s) 100 RIGHT KIDNEY LEFT KIDNEY Velocity (cm/s) Velocity (cm/s) Sys/Esparza Sys/Esparza Resistive Index Resistive Index 71.2 / 13.8 0.81 Proximal Renal Artery 107.5 / 25.1 0.77 73.9 / 20.2 0.73 Mid Renal Artery 64.7 / 14.6 0.78 70.7 / 19.7 0.72 Distal Renal Artery 59.8 / 17.8 0.70 52.1 / 13.8 0.73 Hilar 35.7 / 8.7 0.76 61.7 / 14.9 0.76 Upper Pole 34.7 / 11.6 0.67 61.1 / 15.9 0.74 Mid Pole 46.3 / 10.6 0.77 50.5 / 12.2 0.76 Lower Pole 35.7 / 7.2 0.80 0.70 Renal Aortic Ratio 1.07 Accleration Index (cm/sec2) 1711.0 Hilar 1136.0 0 0 1306.0 Upper Pole 636.00 0 704.00 Mid Pole 475.00 603.00 Lower Pole 891.00 120.9 Kidney Length (mm) 117.4 CONCLUSIONS No sonographic evidence of hemodynamically significant renal artery stenosis bilaterally. Normal color flow Doppler, peak systolic velocities and Renal/Aortic peak systolic velocity ratio noted in bilateral main renal arteries. Luis Latham MD (Electronically Signed) Final Date: 07 March 2020 12:52 S
--- NOTE | 2020-03-04 10:49 | PC.NURSE ---
Verbal order to give 5mg of amlodipine if patient already received 5mg dose this morning.
[2020-03-04] MEDS: amlodipine 5 mg Tablet 10 MG PO (10:55)
--- NOTE | 2020-03-04 11:00 | PC.NURSE ---
Patient to CT scan. Transported in wheelchair.
[2020-03-04] MEDS: iohexol 300 mg/mL 100 mL Btl IV (11:33)
--- NOTE | 2020-03-04 12:37 | PC.NURSE ---
Patient refused lunch and stated she only wants water.
--- NOTE | 2020-03-04 16:59 | PM.DCS ---
Discharge Providers Date of Admission: 03/03/20 21:35 Date of Discharge: March 04, 2020 Attending Provider at Admission: Cesar Clark MD Attending Provider at Discharge: Pramod Horner MD Diagnoses at Discharge Discharge Diagnosis (1) Dyspnea: Status: Acute (2) Transaminitis: Status: Acute (3) Hypertension: Status: Acute Reason for Visit Reason for Visit: high bp Hospital Course Discharge Summary: Viry Mendez is a 69 year old female who presents to the hospital with some complaints of dyspnea. She states for the last 1 months she intermittently has been having flushing, headache when her blood pressure goes up. For the last 2 weeks she has been having some dyspnea that can occur at rest or with exertion. However, this can reliably occur with exertion. It requires 2 to 3 minutes to recover by resting. She denies any chest discomfort. She reports this dyspnea on exertion occurred before when she was having angina secondary to her heart disease which required bypass. She believes this is getting worse and she is having more prolonged episodes. No nausea. No fever. No COVID exposure. No recent leg edema. No calf pain. Patient was admitted to the hospital for chest pain rule out and she underwent stress test on March 04 which was negative for any acute ischemia. Given her history and longstanding hypertension since the age of 18 years and occasional flushing with diaphoresis Hypertension at home patient should be checked out for pheochromocytoma. Blood work with aldosterone levels has been sent out. CT abdomen pelvis was done to rule out adrenal mass or renal artery stenosis. Renal duplex was done but the results are awaited. Patient also underwent echocardiogram but the results are awaited. Patient is advised to maintain a blood pressure diary and follow-up with her primary care provider and plate conditioner for further adjustment of antihypertensives. Patient should be checked for pheochromocytoma with 5-HIAA as an outpatient with 24-hour urine studies. Patient will discharge hemodynamically stable condition. Physical Exam Narrative: EXAM NARRATIVE: General exam no apparent distress. No chest discomfort or shortness of breath currently. HEENT: Pupils equally round. Oropharynx clear. Neck is supple no lymphadenopathy or thyromegaly Cardiovascular regular rate and rhythm, no S3 or S4 Lungs clear no wheezing or crackles Abdomen is soft with positive bowel sounds. No obvious organomegaly was deferred Extremities no cyanosis clubbing or edema, cap refill brisk Skin no rash Neuro no focal deficits. Discharge Data Data Completed and Pending: Completed Studies During Hospitalization Category Date Time Status CT abdomen pelvis wo/w [id number] Routin e Cat Scan 03/04/20 09:[address] head wo con* [id number] Stat Cat Scan 03/03/20 17:48 Completed Sestamibi Stress Test Request Routi ne Exams 03/04/20 06:00 Draft XR chest 1V marisela ble [id number] Stat Exams 03/03/20 16:00 Completed NM zakiya perf SPECT r/s* [id number] Routin e Nuc Med 03/04/20 22:05 Completed US gall bladder 7 [id number] Routine Ultrasound 03/04/20 07:00 Completed Pending at discharge Category Date Time Status Sestamibi Stress Test Request Routi ne Exams 03/03/20 22:05 Stop Req Aldosterone Routi ne Lab 03/04/20 12:13 Received CV echo complete* [id number] Routine Ultrasound 03/04/20 07:00 Taken CV renal doppler [id number] Routine Ultrasound 03/04/20 09:57 Taken Labs from last 24 hours 03/04/20 03/04/20 03/04/20 12:13 03:34 03:34 WBC 9.2 RBC 4.33 Hgb 12.9 Hct 40.5 MCV 93.5 MCH 29.8 MCHC 31.9 RDW 12.1 Plt Count 218 MPV 11.3 H Neut % (Auto) 58.4 Lymph % (Auto) 31.3 [place] % (Auto) 7.8 Eos % (Auto) 1.2 Baso % (Auto) 0.9 Neut # (Auto) 5.38 Lymph # (Auto) 2.9 [place] # (Auto) 0.7 Eos # (Auto) 0.1 Baso # (Auto) 0.1 Nucleated RBC % (a uto) 0 Nucleated RBCs # 0.0 Sodium Potassium Chloride Carbon Dioxide Anion Gap BUN Creatinine GFR Calculation Glucose Calculated Osmolal ity Calcium Total Bilirubin AST ALT Alkaline Phosphata se Troponin T Baselin e Troponin T 120 Min [place] Delta Troponin T Troponin T Hi Sens 6Hr Troponin T Hi Sens 6Hr Delta NT-Pro-B Natriuret Pep Total Protein Albumin Globulin Triglycerides 228 H Cholesterol 156 LDL Cholesterol, C alc 74 HDL Cholesterol 36 L LDL/HDL Ratio 2.06 Cholesterol/HDL Ra keiko 4.33 Aldosterone Pending TSH Urine Color Urine Appearance Urine pH Ur Specific Gravit y Urine Protein Urine Glucose (UA) Urine Ketones Urine Blood Urine Nitrate Urine Bilirubin Urine Urobilinogen Ur Leukocyte Connie ase Hepatitis A IgM Ab Hep Bs Antigen Hep B Core IgM Ab Hepatitis C Antibo dy 03/04/20 03/03/20 03/03/20 03:34 22:26 22:26 WBC RBC Hgb Hct MCV MCH MCHC RDW Plt Count MPV Neut % (Auto) Lymph % (Auto) [place] % (Auto) Eos % (Auto) Baso % (Auto) Neut # (Auto) Lymph # (Auto) [place] # (Auto) Eos # (Auto) Baso # (Auto) Nucleated RBC % (a uto) Nucleated RBCs # Sodium 141 Potassium 4.0 Chloride 106 Carbon Dioxide 24 Anion Gap 15.0 BUN 16 Creatinine 0.7 GFR Calculation 83.0 L Glucose 103 Calculated Osmolal ity 289 Calcium 9.5 Total Bilirubin 0.5 AST 23 ALT 48 H Alkaline Phosphata se 104 Troponin T Baselin e Troponin T 120 Min [place] Delta Troponin T Troponin T Hi Sens 6Hr 9.32 Troponin T Hi Sens 6Hr Delta -0.68 L NT-Pro-B Natriuret Pep Total Protein 7.0 Albumin 4.2 Globulin 2.8 Triglycerides Cholesterol LDL Cholesterol, C alc HDL Cholesterol LDL/HDL Ratio Cholesterol/HDL Ra keiko Aldosterone TSH 2.84 Urine Color Urine Appearance Urine pH Ur Specific Gravit y Urine Protein Urine Glucose (UA) Urine Ketones Urine Blood Urine Nitrate Urine Bilirubin Urine Urobilinogen Ur Leukocyte Connie ase Hepatitis A IgM Ab Hep Bs Antigen Hep B Core IgM Ab Hepatitis C Antibo dy 03/03/20 03/03/20 03/03/20 18:30 17:29 16:26 WBC RBC Hgb Hct MCV MCH MCHC RDW Plt Count MPV Neut % (Auto) Lymph % (Auto) [place] % (Auto) Eos % (Auto) Baso % (Auto) Neut # (Auto) Lymph # (Auto) [place] # (Auto) Eos # (Auto) Baso # (Auto) Nucleated RBC % (a uto) Nucleated RBCs # Sodium Potassium Chloride Carbon Dioxide Anion Gap BUN Creatinine GFR Calculation Glucose Calculated Osmolal ity Calcium Total Bilirubin AST ALT Alkaline Phosphata se Troponin T Baselin e Troponin T 120 Min [place] 12.55 H Delta Troponin T 2.55 Troponin T Hi Sens 6Hr Troponin T Hi Sens 6Hr Delta NT-Pro-B Natriuret Pep Total Protein Albumin Globulin Triglycerides Cholesterol LDL Cholesterol, C alc HDL Cholesterol LDL/HDL Ratio Cholesterol/HDL Ra keiko Aldosterone TSH Urine Color Yellow Urine Appearance Clear Urine pH 5 Ur Specific Gravit y 1.010 Urine Protein Neg Urine Glucose (UA) Norm Urine Ketones Negative Urine Blood Neg Urine Nitrate Negative Urine Bilirubin Neg Urine Urobilinogen Neg Ur Leukocyte Connie ase Negative Hepatitis A IgM Ab Non-reactive Hep Bs Antigen Non-reactive Hep B Core IgM Ab Non-reactive Hepatitis C Antibo dy Non-reactive 03/03/20 03/03/20 16:26 16:26 WBC RBC Hgb Hct MCV MCH MCHC RDW Plt Count MPV Neut % (Auto) Lymph % (Auto) [place] % (Auto) Eos % (Auto) Baso % (Auto) Neut # (Auto) Lymph # (Auto) [place] # (Auto) Eos # (Auto) Baso # (Auto) Nucleated RBC % (a uto) Nucleated RBCs # Sodium 138 Potassium 4.4 Chloride 104 Carbon Dioxide 23 Anion Gap 15.4 BUN 15 Creatinine 0.8 GFR Calculation 71.1 L Glucose 102 Calculated Osmolal ity 282 L Calcium 10.0 Total Bilirubin 0.4 AST 37 H ALT 58 H Alkaline Phosphata se 130 H Troponin T Baselin e 10 Troponin T 120 [address] [place] Delta Troponin T Troponin T Hi Sens 6Hr Troponin T Hi Sens 6Hr Delta NT-Pro-B Natriuret Pep 47 Total Protein 7.2 Albumin 5.1 Globulin 2.1 Triglycerides Cholesterol LDL Cholesterol, C alc HDL Cholesterol LDL/HDL Ratio Cholesterol/HDL Ra keiko Aldosterone TSH Urine Color Urine Appearance Urine pH Ur Specific Gravit y Urine Protein Urine Glucose (UA) Urine Ketones Urine Blood Urine Nitrate Urine Bilirubin Urine Urobilinogen Ur Leukocyte Connie ase Hepatitis A IgM Ab Hep Bs Antigen Hep B Core IgM Ab Hepatitis C Antibo dy Vitals: Last Vital Signs Temp 98.0 F 03/04/20 08:00 Pulse 78 03/04/20 16:30 Resp 20 H 03/04/20 16:30 BP 133/58 03/04/20 16:30 Pulse Ox 93 03/04/20 16:30 Discharge Plan Discharge Patient Disposition: Home Condition: Stable Prescriptions: Continued oxybutynin chloride 10 mg tablet extended release 24hr 10 mg PO DAILY RF: 0 telmisartan 40 mg tablet 40 mg PO BID Qty: 180 RF: 0 metoprolol tartrate 50 mg tablet See Rx Instructions .ROUTE .COMPLEX Qty: 180 RF: 0 Aspirin Low Dose 81 mg Tablet,Delayed Release (Dr/Ec) 81 mg PO DAILY RF: 0 isosorbide mononitrate 30 mg tablet extended release 24 hr 60 mg PO DAILY RF: 0 lovastatin 40 mg tablet 40 mg PO DAILY RF: 0 Changed amlodipine 5 mg tablet 10 mg PO DAILY Qty: 60 RF: 0 Discontinued amoxicillin-pot clavulanate [Augmentin] 875-125 mg tablet 1 tab PO BID 10 Days Qty: 20 RF: 0 Discharge Orders: Discharge Order (Routine); Ordered 03/04/20 Ordered By: Pramod Horner Discharge Diet: Cardiac Discharge Activity: Resume usual activity Activity Restrictions/Additional Instructions: Please maintain blood pressure diary by checking her blood pressures at least 3 times a day. Please follow-up with her blood pressure diary with your primary care provider and your plate conditioner in [place]. Given your past medical history of longstanding hypertension since the age of 18 years and with this episodes of flushing you should be checked out for secondary causes of hypertension. Please follow-up with your primary care provider regarding the blood work which has been sent while you are in the hospital. 5 HIAA and blood work for pheochromocytoma should be done. Discharge Attestations Time Spent in Discharge Care*: greater than 30 min Specific Discharge Activities: Specific discharge activities: educating patient, discussing with patient case coordinator/social workers/dc planners, documenting/other paperwork and evaluating patient/reviewing data Status at Discharge: Cognitive status at discharge: cognitively intact, Behavioral status at discharge: cooperative, Functional status at discharge: independent ambulation Overall status at discharge: patient is back to baseline Quality Metrics Clinical Quality Measures During this hospital stay, did patient experience: None Coding Level of Care Code 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
--- NOTE | 2020-03-04 17:45 | PC.NURSE ---
Patient requests to speak with Dr. Horner regarding discharge before leaving the hospital. I contacted physician by phone and transferred the call into the patient's for the physician to speak with her.
--- NOTE | 2020-03-04 22:05 | NMCV_ITS ---
NM zakiya perf SPECT r/s* [id number] Viry Mendez Age: 69 Gender: F : 1950 Exam Date: 03/04/2020 07:04 Ordering Phys: Cesar Clark MD Technologist: ALEXANDRA Joseph Exam Location: [facility] Indications: HTN STRESS TEST Please see separate stress test report in [facility] for full findings IMAGE PROTOCOL Rest/Stress 1 Lexiscan Day Radiopharmaceutical Dose (mCi) Administration Site Administered by Rest: Tc-99m 11.0 IV Radha Dilcia, HEAD REFRIGERATION ENGINEER Sestamibi Stress:Tc-99m 33.0 IV Radha Dilcia, HEAD REFRIGERATION ENGINEER Sestamibi Rest: 04-Mar-2020 60 Discovery 630 Stress: 04-Mar-2020 45 Discovery 630 0.4mg Lexiscan. Images obtained in supine and prone position. SPECT RESULTS Technical Quality: Good Raw Data Analysis: Breast attenuation Image Corrections: No attenuation or motion correction applied Summed Stress Score: 2 Summed Rest Score: 0 Summed Difference Score: 2 PERFUSION FINDINGS SPECT images demonstrate homogeneous tracer distribution throughout the myocardium. FUNCTIONAL RESULTS (calculated via Gated SPECT) Stress Image LV EF (%): 70 Stress EDV (mL):61 TID: 1.23 Stress ESV (mL):18 FUNCTIONAL FINDINGS: There is normal left ventricular systolic function. IMPRESSIONS 1. Normal myocardial perfusion imaging. 2. LV function is normal. 3. LVEF is 70%. 4. EKG portion of the study will be interpreted separately. Benjamin Flower MD (Electronically Signed) Final Date: 04 March 2020 09:07 S
== END 2020-03-04 18:25 | disposition home or self-care (01) ==
LOC: ER 18:07 → CSU 21:56
PROVIDERS: Emergency Medicine; Admitting Provider Internal Medicine; Visit Provider Student in an Organized Health Care Education/Training Program
DX: I25.118 Atherosclerotic heart disease of native coronary artery with other forms of angina pectoris (principal); R06.00 Dyspnea, unspecified; R74.0 Nonspecific elevation of levels of transaminase and lactic acid dehydrogenase [LDH]; I10 Essential (primary) hypertension; R94.5 Abnormal results of liver function studies; E78.5 Hyperlipidemia, unspecified; G47.33 Obstructive sleep apnea (adult) (pediatric); Z79.82 Long term (current) use of aspirin; M19.90 Unspecified osteoarthritis, unspecified site; Z85.43 Personal history of malignant neoplasm of ovary
CPT/HCPCS: 12345; 36415; 70450; 71045; 74178; 76705; 78452; 80053; 80061; 80074; 81003; 82088; 83880; 84443; 84484; 85025; 93005; 93010; 93017; 93306; 93975; 94660; 96372; 96374; 96375; 99284; 99285; A9500; G0378; J1650; J2785; J3490; Q9967

== ENCOUNTER → 2020-04-08 09:07 | Outpatient (BNVA) | payer MEDICARE, OTHER, SELFPAY | PROVIDERS: Visit Provider Registered Nurse | DX: R39.9 Unspecified symptoms and signs involving the genitourinary system (principal) | CPT/HCPCS: 81000 ==

== ENCOUNTER 2020-05-27 10:47 | Outpatient (CLI) | payer MEDICARE, OTHER, SELFPAY ==
--- NOTE | 2020-05-27 11:00 | MM_ITS ---
WS: [id number] DIAGNOSTIC BILATERAL DIGITAL MAMMOGRAM WITH CAD HISTORY: breast lump COMPARISON: 06/04/2019, 05/20/2019, 07/03/2019 TECHNIQUE: Bilateral craniocaudad, mediolateral oblique, and mediolateral views are submitted. Comput er aided detection utilized. Breast composition: There are scattered areas of fibroglandular density. Biopsy clip in the anterior LEFT breast at the site of the prior biopsy. The previously described nodule is no longer present. Be nign-appearing calcifications in each breast. No suspicious mass or calcification. MM/[place] [id number] IMPRESSION: BI-RADS: 2-Benign FOLLOW UP: 1 Year Follow-up
== END 2020-05-27 10:48 | disposition home or self-care (01) ==
PROVIDERS: PCP Registered Nurse; Visit Provider Registered Nurse
DX: N63.20 Unspecified lump in the left breast, unspecified quadrant
CPT/HCPCS: 77066

== ENCOUNTER 2021-05-30 10:16 | Outpatient (CLI) | payer MEDICARE, OTHER, SELFPAY ==
--- NOTE | 2021-05-30 11:00 | MR_ITS ---
WS: [id number] MRI LUMBAR SPINE NONCONTRAST TECHNIQUE: Sagittal T1, T2 and STIR imaging. Axial T1 and T2 imaging. 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 FINDINGS: Counting performed from the craniocervical junction. L5 is partially sacralized. Mild lumbar curve. N o acute compression. No high-grade central canal stenosis. A few Schmorl's nodes in the lower thoraci c and lumbar spine. L1-L2: Mild annular bulging. Spinal canal and foramen are patent. Mild facet arthropathy. L2-L3: Mild annular bulging with a small right foraminal protrusion. Contact of the exiting right L2 nerve root with mild right foraminal narrowing. Mild central canal stenosis with narrowing of the sub articular recess. Moderate facet arthropathy with ligamentum flavum hypertrophy. L3-L4: Minimal annular bulging. Moderate facet arthropathy. Small facet effusions. Mild central canal stenosis. Impingement traversing L4 nerve roots in the subarticular recess bilaterally. Mild right f oraminal narrowing. L4-L5: Mild annular bulging with a shallow central protrusion eccentric to the right. Slight impingem ent traversing right L5 nerve root. Moderate facet arthropathy. Mild right and no significant left fo raminal narrowing. L5-S1: L5 is sacralized. Spinal canal and foramen are patent. Aneurysmal distal abdominal aorta at the L2 level measuring 2.6 x 2.6 cm AP by transverse. Prior ster notomy. Degenerative changes have progressed slightly since MRI February 10, 2009 MR/MR lumbar spine wo con* [id number] IMPRESSION: 1. Counting purposes performed from the craniocervical junction. L5 is sacrali zed with rudimentary disc space. Recommend plain film correlation prior to surg ical intervention. 2. Mild central canal stenosis L3-4 with slight impingement traversing L4 nerv e roots bilaterally. Small right foraminal protrusion at this level with mild r ight foraminal narrowing. 3. Right pericentral shallow protrusion L4-5 impinges the traversing right L5 nerve root in the subarticular recess. Moderate right L4-5 foraminal narrowing. 4. Mild right L1-2 and L2-3 foraminal narrowing. Small right L2-3 foraminal pr otrusion. 5. Moderate facet arthropathy worse at L3-4 with small facet effusions. 6. Aneurysmal distal abdominal aorta measuring 2.6 x 2.6 cm AP by transverse.
== END 2021-05-30 10:17 | disposition home or self-care (01) ==
LOC: RADSHAW 10:17
PROVIDERS: PCP Registered Nurse; Visit Provider Registered Nurse
DX: M47.16 Other spondylosis with myelopathy, lumbar region (principal); I71.4 Abdominal aortic aneurysm, without rupture; M47.816 Spondylosis without myelopathy or radiculopathy, lumbar region; M51.26 Other intervertebral disc displacement, lumbar region; M48.061 Spinal stenosis, lumbar region without neurogenic claudication
CPT/HCPCS: 72148

== ENCOUNTER 2022-03-07 09:56 | Outpatient (CLI) | payer MEDICARE, OTHER, SELFPAY ==
--- NOTE | 2022-03-07 10:06 | MR_ITS ---
WS: [id number] MRI LUMBAR SPINE NONCONTRAST TECHNIQUE: Sagittal T1, T2 and STIR imaging. Axial T1 and T2 imaging. CLINICAL INFORMATION: RADICULOPATHY,LUMBAR REGION COMPARISON: MRI 11-21 FINDINGS: Counting purposes performed from the craniocervical junction. L5 is sacralized with rudimen tary disc space. Recommend plain film correlation prior to surgical intervention. Mild lumbar curve. No acute compression. No high-grade central canal stenosis. Postoperative changes L2-L3 and L3-L4 with laminectomy defects new from previous. L1-L2: Tiny shallow RIGHT pericentral protrusion. Slight narrowing of the RIGHT subarticular recess. Moderate facet arthropathy. Mild RIGHT foraminal narrowing. L2-L3: Mild annular bulging. Laminectomy defects. Moderate facet arthropathy. Tiny RIGHT foraminal pr otrusion with mild RIGHT foraminal narrowing. L3-L4: Mild annular bulging. Moderate facet arthropathy. Small facet effusions. Decompressive laminec anum defects. Mild RIGHT foraminal narrowing. L4-L5: Mild annular bulging with slight effacement of ventral thecal sac. Mild facet arthropathy. Mil d RIGHT and no significant LEFT foraminal narrowing. Slight narrowing of the RIGHT subarticular reces s with encroachment traversing RIGHT greater than LEFT L5 nerve roots. L5-S1: L5 is sacralized. Rudimentary disc space. Spinal canal and foramen are patent. Infrarenal abdominal aortic aneurysm appears stable 2.7 x 2.6 cm AP by transverse. Visualized pelvic bony structures: Normal. Paravertebral soft tissues: Normal. MR/MR lumbar spine wo con* [id number] IMPRESSION:Counting purposes performed from the craniocervical junction. L5 is sacralized with rudimentary disc space. Recommend plain film correlation prior to surgical intervention. 1. Mild lumbar curve. No acute compression. No high-grade central canal stenos is. 2. Postoperative changes L2-L3 and L3-L4 with laminectomy defects new from pre vious. Spinal canal stenosis decompressed from previous. 3. RIGHT eccentric disc bulging L3-L4 with mild RIGHT foraminal narrowing. 4. Annular bulging L4-L5 with impingement RIGHT subarticular recess and norma sing RIGHT greater than LEFT L5 nerve roots. Mild RIGHT L4-L5 foraminal narrowi ng. 5. Tiny shallow RIGHT subarticular protrusion L1-L2 with slight encroachment t raversing RIGHT L2 nerve root. 6. Infrarenal abdominal aortic aneurysm measuring 2.7 x 2.6 cm AP by transvers e.
== END 2022-03-07 09:57 | disposition home or self-care (01) ==
LOC: RAD 09:58
PROVIDERS: PCP Registered Nurse; Visit Provider Neurological Surgery
DX: M54.16 Radiculopathy, lumbar region (principal); I71.4 Abdominal aortic aneurysm, without rupture; M51.26 Other intervertebral disc displacement, lumbar region
CPT/HCPCS: 72148

== ENCOUNTER → 2022-05-25 09:02 | Outpatient (BNVA) | payer MEDICARE, OTHER, SELFPAY | PROVIDERS: PCP Registered Nurse; Visit Provider Registered Nurse | DX: I10 Essential (primary) hypertension (principal) | CPT/HCPCS: 80053; 80061; 85025 ==

== ENCOUNTER 2022-07-03 10:36 | Outpatient (CLI) | payer MEDICARE, OTHER, SELFPAY ==
--- NOTE | 2022-07-03 10:47 | MM_ITS ---
WS: [id number] Bilateral screening 3D tomosynthesis digital mammogram, 07/03/2022 Clinical Data: SCREEN Comparison: 05/27/2020, 06/04/2019, 05/20/2019, 08/31/2016, 05/20/2015, 06/08/2009. Findings: The breast parenchymal pattern shows fat replacement. No spiculated masses or clustered calcification s are seen. There are no secondary signs of carcinoma. There is a biopsy clip in the anterior aspect of the left breast. There is a mole marker on the right breast. MM/[place] [id number] Impression: 1. Negative bilateral mammogram unchanged. 2. Recommend annual screening mammograms. BIRADS: 1-Negative FOLLOW UP: 1 Year Follow-up The CAD bag checker was used.
== END 2022-07-03 10:37 | disposition home or self-care (01) ==
LOC: RAD 10:38
PROVIDERS: PCP Registered Nurse; Visit Provider Registered Nurse
DX: Z12.31 Encounter for screening mammogram for malignant neoplasm of breast (principal)
CPT/HCPCS: 77063; 77067

== ENCOUNTER → 2022-10-09 09:02 | Outpatient (BNVA) | payer MEDICARE, OTHER, SELFPAY | PROVIDERS: PCP Registered Nurse; Visit Provider Registered Nurse | DX: R21 Rash and other nonspecific skin eruption (principal) | CPT/HCPCS: 80053; 85025; 85651; 86038; 86140; 86431 ==

== ENCOUNTER 2022-11-22 10:49 | Outpatient (CLI) | payer MEDICARE, OTHER, SELFPAY ==
--- NOTE | 2022-11-22 11:00 | MR_ITS ---
WS: [id number] MRI LUMBAR SPINE NONCONTRAST HISTORY: RADICULOPATHY LUMBAR REGION COMPARISON: 03/07/2022 TECHNIQUE: Sagittal and axial multisequence imaging is submitted. Same numbering pattern will be utilized on today's examination as on 03/07/2022. L5 is sacralized with a rudimentary disc space. Mild straightening and curvature of the normal lordosis. Similar to the prior study. No fractures or marrow edema. Postoperative changes at L2-3 and L3-4 laminectomy defects. Mild disc desiccation throughout. Rudimentary L5-S1 disc. Conus terminates normally at L2. L1-L2: Shallow RIGHT paracentral disc protrusion is reidentified. Mild narrowing of the RIGHT subarti cular recess. Moderate facet joint arthritis. Mild bilateral foraminal narrowing. Similar to the prio r studies. L2-L3: Mild annular disc bulging and osteophytic ridging. Facet hypertrophy. Large posterior laminect dana defect. No central stenosis. Mild bilateral foraminal stenosis, LEFT greater than RIGHT. L3-L4: Large posterior laminectomy defect. Patent thecal sac. Mild disc bulging with facet disease. F luid in the facet joints. Bilateral foraminal stenosis is similar to the prior study. L4-L5: Mild annular disc bulging with effacement of the ventral thecal sac. Mild bilateral facet join t arthritis. Asymmetric disc bulging to the RIGHT. This is more progressed than on the prior study. M ild bilateral foraminal narrowing. Mild encroachment upon the RIGHT subarticular recess and the trave rsing RIGHT L5 nerve root. Fluid in the facet joints. L5-S1: Rudimentary disc. No stenosis. L5 is sacralized. Mild ectasia and dilatation of the infrarenal aorta to 2.8 cm. LEFT renal cyst 1.6 cm. MR/MR lumbar spine wo con* [id number] IMPRESSION: 1. 4 lumbar type vertebral bodies with L5 being partially sacralized. Same num bering pattern will be utilized for today's examination as on 03/07/2022. 2. Prior laminectomy defects at L2-3 and L3-4. 3. Asymmetric disc bulging to the RIGHT at L4-5 with encroachment upon the RIG HT subarticular recess and traversing RIGHT L5 nerve root. Mildly progressed si nce the prior study. 4. Shallow RIGHT paracentral disc protrusion at L1-2 is unchanged. Very mild n arrowing of the RIGHT subarticular recess. 5. Mild bilateral foraminal stenosis at L1-2, L2-3, L3-4 and L4-5 without sign ificant progression. 6. Infrarenal abdominal aortic aneurysm with a maximum diameter of 2.8 cm, unc hanged.
== END 2022-11-22 10:50 | disposition home or self-care (01) ==
LOC: RAD 10:53
PROVIDERS: PCP Registered Nurse; Visit Provider Neurological Surgery
DX: M54.16 Radiculopathy, lumbar region (principal); M51.36 Other intervertebral disc degeneration, lumbar region; M51.26 Other intervertebral disc displacement, lumbar region
CPT/HCPCS: 72148

== ENCOUNTER → 2023-01-18 10:51 | Outpatient (BNVA) | payer MEDICARE, OTHER, SELFPAY | PROVIDERS: PCP Registered Nurse; Visit Provider Registered Nurse | DX: R21 Rash and other nonspecific skin eruption (principal) | CPT/HCPCS: 88304 ==

== ENCOUNTER 2023-01-23 14:50 | Outpatient (CLI) | payer MEDICARE, OTHER, SELFPAY ==
--- NOTE | 2023-01-23 15:00 | XR_ITS ---
WS: [id number] SCREENING DEXA SCAN [place] CLINICAL INFORMATION: M81.0 - Age-related osteoporosis without current patholog... COMPARISON: None. FINDINGS: The L1-L4 bone mineral density measures 1.110 g/cm2. This corresponds to a T score score of -0.6 and Z score of 0.0. Left femoral neck bone mineral density measures 0.875 g/cm2. This corresponds to a T score of -1.1 an d Z score of -0.3. Right femoral neck bone mineral density measures 0.894 g/cm2. This corresponds to a T score -0.9of an d Z score of -0.1. Mean femoral neck bone mineral density measures 0.884 g/cm2. This corresponds to a T score of -1.0 an d Z score of -0.2. XR/XR DEXA axial skeleton* [id number] IMPRESSION: Normal bone mineralization lumbar spine. Osteopenia in the femoral necks lower end of the range. Patient's FRAX calculated 10 year probability for major osteoporotic fracture i s 10.8 % and osteoporotic hip fracture is 2.1%.
== END 2023-01-23 14:51 | disposition home or self-care (01) ==
LOC: RAD 14:53
PROVIDERS: PCP Registered Nurse; Visit Provider Registered Nurse
DX: Z13.820 Encounter for screening for osteoporosis (principal); M81.0 Age-related osteoporosis without current pathological fracture; M85.852 Other specified disorders of bone density and structure, left thigh; M85.851 Other specified disorders of bone density and structure, right thigh
CPT/HCPCS: 77080

== ENCOUNTER → 2023-02-20 12:25 | Outpatient (BNVA) | payer MEDICARE, OTHER, SELFPAY | PROVIDERS: PCP Registered Nurse; Visit Provider Internal Medicine Rheumatology | DX: Z79.899 Other long term (current) drug therapy (principal); R76.8 Other specified abnormal immunological findings in serum; M54.9 Dorsalgia, unspecified; I10 Essential (primary) hypertension | CPT/HCPCS: 36415; 72100; 72202; 80053; 84484; 86141; 86225; 86235; 99204 ==

== ENCOUNTER → 2023-03-04 11:22 | Outpatient (BNVA) | payer MEDICARE, OTHER, SELFPAY | PROVIDERS: PCP Registered Nurse; Visit Provider Registered Nurse | DX: N39.0 Urinary tract infection, site not specified (principal); R06.00 Dyspnea, unspecified; R06.89 Other abnormalities of breathing; R06.02 Shortness of breath; Z09 Encounter for follow-up examination after completed treatment for conditions other than malignant neoplasm | CPT/HCPCS: 81000; 87077; 87086; 87184 ==

== ENCOUNTER 2023-03-13 13:46 | Outpatient (CLI) | payer MEDICARE, OTHER, SELFPAY ==
[2023-03-13 14:03] VITALS: PULSE 75; RESP 18; O2SAT 99
[2023-03-13] MEDS: albuterol 2.5 mg/3 mL Neb INHALATION (14:03)
[2023-03-13 14:08] VITALS: PULSE 79
== END 2023-03-13 13:47 | disposition home or self-care (01) ==
PROVIDERS: PCP Registered Nurse; Visit Provider Registered Nurse
DX: R06.00 Dyspnea, unspecified (principal); R06.89 Other abnormalities of breathing
CPT/HCPCS: 94060; 94726; 94729; J7613

== ENCOUNTER → 2023-07-08 11:38 | Outpatient (BNVA) | payer MEDICARE, OTHER, SELFPAY | PROVIDERS: PCP Registered Nurse; Referring Provider Registered Nurse; Visit Provider Internal Medicine Pulmonary Disease | DX: J98.4 Other disorders of lung (principal); R76.8 Other specified abnormal immunological findings in serum; R06.00 Dyspnea, unspecified; I25.10 Atherosclerotic heart disease of native coronary artery without angina pectoris; Z95.5 Presence of coronary angioplasty implant and graft; E66.01 Morbid (severe) obesity due to excess calories; Z87.891 Personal history of nicotine dependence; Z68.36 Body mass index [BMI] 36.0-36.9, adult | CPT/HCPCS: 36415; 71046; 85651; 86038; 86140; 86200; 86235; 86431; 99204 ==

== ENCOUNTER → 2023-09-03 15:39 | Outpatient (BNVA) | payer MEDICARE, OTHER, SELFPAY | PROVIDERS: PCP Registered Nurse; Referring Provider Internal Medicine Pulmonary Disease; Visit Provider Internal Medicine Pulmonary Disease | DX: R06.02 Shortness of breath (principal); J34.89 Other specified disorders of nose and nasal sinuses; Z79.899 Other long term (current) drug therapy | CPT/HCPCS: 82785; 86003; 99214 ==

== ENCOUNTER → 2023-10-01 14:32 | Outpatient (BNVA) | payer MEDICARE, OTHER, SELFPAY | PROVIDERS: PCP Registered Nurse; Visit Provider Internal Medicine Rheumatology | DX: M19.041 Primary osteoarthritis, right hand (principal); M19.042 Primary osteoarthritis, left hand; R76.8 Other specified abnormal immunological findings in serum; R21 Rash and other nonspecific skin eruption | CPT/HCPCS: 36415; 80076; 82565; 85025; 86140; 99214 ==

== ENCOUNTER → 2024-04-23 11:20 | Outpatient (BNVA) | payer MEDICARE, SELFPAY | PROVIDERS: PCP Registered Nurse; Visit Provider Registered Nurse | DX: I10 Essential (primary) hypertension (principal) | CPT/HCPCS: 80053; 80061; 84443; 85025 ==

== ENCOUNTER 2024-04-27 07:00 | Outpatient (CLI) | payer MEDICARE, SELFPAY ==
--- NOTE | 2024-04-27 07:00 | CT_ITS ---
WS: [id number] CT HEAD NONCONTRAST HISTORY: G45.9 - Transient cerebral ischemic attack, unspecified TECHNIQUE: Contiguous axial imaging performed through the brain in 2.5 mm imaging. Bone and soft tiss ue windows. Sagittal and coronal reformats reviewed. All CT scans at [facility] use at least one of these dose optimization techniques: automated exposure control; mA and/or kV adjustment per pa tient size (includes targeted exams where dose is matched to clinical indication); or iterative recon struction. DLP: 1057.18 mGy.cm COMPARISON: 03/03/2020 No acute intracranial hemorrhage, midline shift or mass effect. Mild atrophy and mild to moderate small vessel ischemic disease. Decreased attenuation in the anterio r limbs of the internal capsules with mild progression. No acute infarct. Ventricles: Normal size with no hydrocephalus. Paranasal sinuses: As visualized are clear. Mastoid air cells: Well pneumatized. Calvarium and scalp: Hyperostosis frontalis interna. No soft tissue abnormality. CT/CT head wo con* [id number] IMPRESSION: 1. No acute intracranial hemorrhage or edema. 2. Mild atrophy with mild to moderate small vessel ischemic changes. Mild prog ression since 03/03/2020.
== END 2024-04-27 07:01 | disposition home or self-care (01) ==
PROVIDERS: PCP Registered Nurse; Visit Provider Registered Nurse
DX: G45.9 Transient cerebral ischemic attack, unspecified (principal)
CPT/HCPCS: 70450

== ENCOUNTER → 2024-12-23 07:55 | Outpatient (BNVA) | payer MEDICARE, SELFPAY | PROVIDERS: PCP Registered Nurse; Visit Provider Internal Medicine Cardiovascular Disease | DX: R42 Dizziness and giddiness (principal); R06.00 Dyspnea, unspecified | CPT/HCPCS: 80048 ==

== ENCOUNTER → 2025-03-17 08:30 | Outpatient (BNVA) | payer MEDICARE, SELFPAY | PROVIDERS: PCP Registered Nurse; Visit Provider Registered Nurse | DX: N39.0 Urinary tract infection, site not specified (principal) | CPT/HCPCS: 81000; 87086 ==

== ENCOUNTER 2025-06-09 13:54 | Outpatient (CLI) | payer MEDICARE, SELFPAY ==
--- NOTE | 2025-06-09 14:00 | MM_ITS ---
WS: [id number] BILATERAL 3D TOMOSYNTHESIS DIGITAL SCREENING MAMMOGRAPHY WITH CAD CLINICAL INFORMATION: SCREENING HISTORY: Screening mammogram. No current complaints. COMPARISON: 2021 TECHNIQUE: Bilateral CC and MLO views. FINDINGS: Scattered fibroglandular densities bilaterally. No suspicious focal mass, asymmetry, calcifications, or architectural distortion. No evidence of malignancy. A few incidental punctate calcifications. Biopsy clip LEFT breast. MM/MM scr BI tomosynthesis [id number] IMPRESSION: DENSITY: There are scattered areas of fibroglandular density. BI-RADS: 2 - Benign. FOLLOW UP: 1 Year Follow-up Recommend return to annual screening mammography.
== END 2025-06-09 13:55 | disposition home or self-care (01) ==
LOC: MOBLMAM 13:54
PROVIDERS: PCP Registered Nurse; Visit Provider Registered Nurse
DX: Z12.31 Encounter for screening mammogram for malignant neoplasm of breast (principal); R92.323 Mammographic fibroglandular density, bilateral breasts; R92.1 Mammographic calcification found on diagnostic imaging of breast; Z96.89 Presence of other specified functional implants
CPT/HCPCS: 77063; 77067